=== PATIENT | male | born 1965 | race Hispanic/Latino ===

== ENCOUNTER 2018-03-15 08:53 | Outpatient (CLI) | payer OTHER ==
--- NOTE | 2018-03-15 10:50 | ULT ---
ULTRASOUND RENAL BILATERAL STANDARD: History Hypertension. COMPARISON: None. FINDINGS: Real-time, chappell scale, color Doppler, and spectral analysis of the kidneys and renal vessels was perf ormed. The right kidney measures 10.1 x 5.1 x 4.8 cm and the left kidney measures 10.6 x 5.5 x 5 cm. There is a 9 mm cyst right kidney superior/interpolar region. The aortic peak systolic velocity is 87.9 cm/s. The right renal artery peak systolic velocity is 34. 2 cm/s and the left renal artery peak systolic velocity is 51.6 cm/s. The arcuate resistive index on the right is 0.64 and on the left is 0.56. IMPRESSION: 1. Normal examination of the kidneys. 2. No evidence of renal artery stenosis. 3. Normal arcuate resistive indices. 4. Normal appearance to the urinary bladder. POS: OFF
== END 2018-03-15 08:54 | disposition home or self-care (01) ==
LOC: BICULT 08:53
PROVIDERS: ATTEND Internal Medicine
DX: I10 Essential (primary) hypertension (principal); I70.1 Atherosclerosis of renal artery
CPT/HCPCS: 76700; 76770

== ENCOUNTER 2023-02-27 14:15 | Outpatient (CLI) | payer BC | END 2023-02-27 14:16 | disposition home or self-care (01) | LOC: SCSMRI 14:15 | PROVIDERS: ATTEND Nurse Practitioner Family | DX: M54.10 Radiculopathy, site unspecified (principal) | CPT/HCPCS: 72146 ==